=== PATIENT | female | born 1960 | race Caucasian/White ===

== ENCOUNTER 2023-01-26 11:59 | Inpatient (IN) | payer BC ==
[2023-01-26] MEDS ORDERED: Pantoprazole 40 MG Vial IVPUSH ONE (12:49)
[2023-01-26] MEDS ORDERED: Sodium Chloride 0.9% 500 ML IV ONE (12:49)
[2023-01-26] MEDS ORDERED: Iopamidol 755 Mg/ML 100 ML Bottle IV ONE (13:26)
[2023-01-26] MEDS: Sodium Chloride 0.9% 1,000 ML IV SCH (13:55)
[2023-01-26 16:13] LABS: ESTIMATED GFR 64 mL/min (>60)
[2023-01-26] MEDS ORDERED: Sodium Chloride 0.9% 10 ML Syringe FLUSH PRN (17:00)
[2023-01-26] MEDS: Sodium Chloride 0.9% 250 ML IV SCH ×2 (17:06→20:11)
[2023-01-27] MEDS: Sodium Chloride 0.9% 1,000 ML IV SCH (06:17)
[2023-01-27] MEDS ORDERED: Iopamidol 755 Mg/ML 100 ML Bottle IV ONE (10:08)
[2023-01-27] MEDS ORDERED: Furosemide 40 MG/4 ML VIAL IVPUSH ONE (11:56)
[2023-01-27] MEDS: Apixaban 5 MG Tab PO SCH ×2 (13:01→20:52)
[2023-01-28] MEDS: Apixaban 5 MG Tab PO SCH (09:28)
== END 2023-01-28 12:00 | disposition home or self-care (01) | DRG 530 ==
LOC: FB.ED 11:59 → FB.MS 15:42 → OBSVTOIN 01-27 15:55
PROVIDERS: ADMIT Family Medicine; ATTEND Family Medicine
PROC: 30233N1 Transfusion of Nonautologous Red Blood Cells into Peripheral Vein, Percutaneous Approach (ICD-10-PCS; principal; 2023-01-26)
DX: C57.9 Malignant neoplasm of female genital organ, unspecified (principal); D64.9 Anemia, unspecified; J81.0 Acute pulmonary edema; I26.94 Multiple subsegmental thrombotic pulmonary emboli without acute cor pulmonale; Z86.16 Personal history of COVID-19
CPT/HCPCS: 36415; 36430; 71275; 74177; 80053; 81001; 82270; 83880; 85014; 85018; 85025; 85027; 85379; 86850; 86900; 86901; 86920; 86922; 93005; 96361; 96374; 96375; 99285-25; A9270-GY; C9113; G0378; J1940; J3490; J7030; J7040; J7050; P9016; Q9967